=== PATIENT | female | born 1965 | race Two or more races ===

== ENCOUNTER 2024-04-15 16:06 | Emergency (ER) | payer SELFPAY ==
[2024-04-15 16:14] VITALS: BP 172/98; PULSE 78; TEMP 36.6; O2SAT 97; BMI 23.2
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
[2024-04-15] MEDS: HYDROCODONE/ACET 5-325 MG TABLET 1 TAB PO (17:20)
[2024-04-15] MEDS: METHOCARBAMOL 500 MG TABLET PO (17:20)
== END 2024-04-15 17:45 | disposition home or self-care (01) ==
PROVIDERS: Emergency Provider Emergency Medicine
DX: S16.1XXA Strain of muscle, fascia and tendon at neck level, initial encounter (principal); R51.9 Headache, unspecified; V43.52XA Car driver injured in collision with other type car in traffic accident, initial encounter
CPT/HCPCS: 70450; 72125; 99284

== ENCOUNTER 2024-09-16 12:49 | Outpatient (OUT) | payer OTHER, SELFPAY ==
--- NOTE | 2024-09-16 12:53 | XR_ITS ---
The [address] [address] Patient Name: RADHAMES TORRES MRN: [id number] date: 1965 Sex: F Assigned Patient Location: [facility] Current Patient Location: Accession/Order Number: [id number] Exam Date: 09/16/2024 13:00 Report Date: 09/17/2024 06:41 At the request of: MIMI MCQUEEN Procedure: XR elbow RT min 3V PROCEDURE: XR elbow RT min 3V HISTORY: right elbow pain COMPARISON: XR elbow right 05/13/2012 FINDINGS: BONES:Large periarticular degenerative osteophytes throughout the elbow. No fracture or dislocation. Heterotopic bone formation from remote trauma. SOFT TISSUES:No visible soft tissue swelling. EFFUSION:Small joint effusion. OTHER: Negative. XR/XR elbow RT min 3V IMPRESSION: 1. No acute bone abnormality. 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 Electronically authenticated by: FRANCISCO MARTINEZ Date: 09/17/2024 06:41
== END 2024-09-16 12:50 | disposition home or self-care (01) ==
LOC: RAD 12:50
PROVIDERS: PCP Nurse Practitioner; Visit Provider Nurse Practitioner
DX: M25.521 Pain in right elbow (principal)
CPT/HCPCS: 73080